=== PATIENT | male | born 1985 | race Caucasian/White ===

== ENCOUNTER 2018-06-15 13:05 | Emergency (ER) | payer OTHER ==
[~2018-06-15] VITALS: Ht 175.3 cm; Wt 86.9 kg
[2018-06-15] MEDS ORDERED: DEXTROSE 50%-WATER 25 GM/50 ML SYRINGE IVP ONE ×2 (13:11→13:15)
[2018-06-15 13:29] LABS: GLUCOSE,POINT OF CARE 199 MG/DL (70-110)
[2018-06-15 13:41] LABS: BASOPHILS % (AUTO) 1.3 % (0.0-2.0); EOSINOPHILS % (AUTO) 1.2 % (1.0-6.0); HEMATOCRIT 22.3 % (41-53); HEMOGLOBIN 7.6 g/dL (13.5-17.5); LYMPHOCYTES # (AUTO) 1.5 K/uL (1.0-4.8); MEAN CORPUSCULAR HGB CONC 34.2 G/dL (31.0-37.0); MEAN CORPUSCULAR VOLUME 88 fL (80-100); MONOCYTES # (AUTO) 0.6 K/uL (0.1-1.0); MONOCYTES % (AUTO) 10.6 % (2.0-9.0); NEUTROPHILS # (AUTO) 3.3 K/uL (1.8-7.7); NEUTROPHILS % (AUTO) 59.9 % (40.0-70.0); PLATELET COUNT (AUTO) 218 K/uL (150-450); RED BLOOD CELL COUNT(AUTO) 2.54 MIL/uL (4.50-5.90); RED CELL DISTRIBUTION WIDTH 13.9 % (11.5-14.5)
[2018-06-15] MEDS ORDERED: INSU100V37 SD (13:47)
[2018-06-15] MEDS ORDERED: CLON-570 PO (13:47)
[2018-06-15] MEDS ORDERED: FURO40 PO (13:47)
[2018-06-15] MEDS ORDERED: INSU100V SQ (13:47)
[2018-06-15 13:50] LABS: CALCIUM, TOTAL 8.3 mg/dL (8.8-10.5); CREATININE 3.78 mg/dL (0.60-1.30); POTASSIUM 4.4 mmol/L (3.5-5.1)
[2018-06-15 13:54] LABS: GLUCOSE,POINT OF CARE 100 MG/DL (70-110)
[2018-06-15 14:29] LABS: GLUCOSE,POINT OF CARE 136 MG/DL (70-110)
[2018-06-15 15:24] LABS: GLUCOSE,POINT OF CARE 198 MG/DL (70-110)
[2018-06-15 15:28] LABS: GLUCOSE,POINT OF CARE 205 MG/DL (70-110)
[2018-06-15 16:00] VITALS: BP 157/95
[2018-06-15 16:24] LABS: GLUCOSE,POINT OF CARE 309 MG/DL (70-110)
[2018-06-15 16:59] LABS: GLUCOSE,POINT OF CARE 367 MG/DL (70-110)
== END 2018-06-15 17:01 | disposition home or self-care (01) ==
LOC: EMS 13:06 → EDBD 13:06 → EMS 17:01
DX: E11.649 Type 2 diabetes mellitus with hypoglycemia without coma (principal); D64.9 Anemia, unspecified; I12.9 Hypertensive chronic kidney disease with stage 1 through stage 4 chronic kidney disease, or unspecified chronic kidney disease; E11.22 Type 2 diabetes mellitus with diabetic chronic kidney disease; N18.9 Chronic kidney disease, unspecified; Z79.4 Long term (current) use of insulin
CPT/HCPCS: 82948; 96374; 99291